=== PATIENT | male | born 1975 | race American Indian/Alaskan Native ===

== ENCOUNTER 2020-09-12 17:50 | Inpatient (IN) | payer BC, OTHER, SELFPAY ==
--- NOTE | 2020-09-12 18:18 | Event Note ---
ED Screening Note Date of service: 09/12/20 Time: 18:14 ED Screening Note: 45 y o male presents with cc of left sided cp that began earlier while he was at work, was sent to [facility] for assessmebnt EKG done, BP elevated was sent to ER, recieved aspirin at [facility] This initial assessment/diagnostic orders/clinical plan/treatment(s) is/are subject to change based on patients health status, clinical progression and re- assessment by fellow clinical providers in the ED. Further treatment and workup at subsequent clinical providers discretion. Patient/guardian urged not to elope from the ED as their condition may be serious if not clinically assessed and managed. Initial orders include: cp protocol
[2020-09-12 18:45] LABS: Hematocrit 46.4 % (35.5-45.6); Hemoglobin 15.9 gm/dl (11.8-15.2); Mean Corpuscular HGB Conc 34 % (32-34); Mean Corpuscular Volume 99 fl (84-94); Platelet Count 252 K/mm3 (140-440); Red Blood Count 4.69 M/mm3 (3.65-5.03); Red Cell Distribution Width 12.9 % (13.2-15.2)
[2020-09-12 19:05] LABS: BUN/Creatinine Ratio 13; Blood Urea Nitrogen 14 mg/dL (9-20); Calcium 9.5 mg/dL (8.4-10.2); Hemolysis Index 20
--- NOTE | 2020-09-12 19:12 | XRay Report ---
CHEST PA AND LATERAL VIEWS INDICATION: Chest Pain. COMPARISON: None. FINDINGS: Support devices: None. Heart: Within normal limits. Lungs/Pleura: There is mild elevation of the left hemidiaphragm with mild pleural thickening at the l eft costophrenic angle. No acute pulmonary findings. IMPRESSION: 1. No acute findings. Signer Name: Mp Osborne MD Signed: 09/12/2020 7:08 PM Workstation Name: [id number]
[2020-09-12 19:17] LABS: Basophils % (Manual) 0 % (0.0-1.8); Total Cells Counted 100
[2020-09-12 19:18] LABS: RBC Morphology Normal
[2020-09-13] MEDS ORDERED: SODIUM CHLORIDE 0.9% 1000 ML 1,000 ML IV ONE ×2 (00:22→04:29)
--- NOTE | 2020-09-13 02:58 | Cat Scan Report ---
CT ANGIOGRAPHY OF THE CHEST WITH INTRAVENOUS CONTRAST AND MULTIPLANAR MIP RECONSTRUCTIONS INDICATION / CLINICAL INFORMATION: Chest pain and Tachycardia. TECHNIQUE: Axial CT images were obtained after injection of 100 cc Omnipaque 350 IV contrast using CTA protocol. 3 plane MIP / 3D reconstructions were produced. All CT scans at this location are performed using CT dose reduction for ALARA by means of automated exposure control. COMPARISON: None available. FINDINGS: There is good opacification of the pulmonary arterial system bilaterally without intraluminal filling defect to suggest acute PTE. The thoracic aorta is normal in caliber without dissection. The visuali zed coronary vessels are unremarkable. There is mosaic lung attenuation. There is patchy groundglass parenchymal disease and associated sept al thickening throughout both lungs. Mild left basilar subsegmental atelectasis/scarring is noted. Th e left hemidiaphragm is slightly elevated. There are multiple areas of pleural-based nodularity in the left hemithorax predominantly anteriorly and medially. The largest nodule measures approximately 4.2 cm. There are surgical changes in the lef t upper quadrant of the abdomen with probable prior splenectomy. There are multiple splenules in the left upper quadrant. There are surgical changes involving the left colon. No other abnormality is see n in the upper abdomen No acute osseous abnormality is seen.. IMPRESSION: 1. No evidence of acute PTE. 2. Multifocal areas of groundglass parenchymal opacity and septal thickening throughout both lungs/mo saic lung attenuation. Differential diagnosis includes hypersensitivity pneumonitis and other causes of small airway disease. Atypical causes of infection, including viral pneumonia, are also possible. 3. Multifocal pleural-based nodularity in the left hemithorax is characteristic of splenosis. There i s evidence of prior splenectomy with multiple splenules in the left upper quadrant of the abdomen. Signer Name: Sammy Wyatt MD Signed: 09/13/2020 2:53 AM Workstation Name: [id number]
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
[2020-09-13] MEDS ORDERED: cefTRIAXone/NS 1 GM/50 ML 1 GM/50 ML BAG IV ONE (03:42)
[2020-09-13] MEDS ORDERED: AZITHROMYCIN 500 MG in SODIUM CHLORIDE 0.9% 250ML 250 ML IV ONE (03:42)
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
[2020-09-13 06:20] LABS: C-Reactive Protein 4.9 mg/dL (0.00-1.30)
[2020-09-13] MEDS ORDERED: ONDANSETRON 4 MG/2 ML INJ IV PRN (06:24)
[2020-09-13] MEDS ORDERED: ACETAMINOPHEN 325 MG TAB PO PRN (06:24)
[2020-09-13] MEDS: ENOXAPARIN 40 MG/0.4 ML INJ SUB-Q SCH ×2 (09:52→21:54)
[2020-09-13] MEDS: SODIUM CHLORIDE 0.9% 1000 ML 1,000 ML IV SCH ×2 (09:54→21:58)
[2020-09-13 12:21] LABS: Bilirubin,Urine NEG (Negative); Blood,Urine SM (Negative); Color,Urine Straw (Yellow); Protein,Urine <15 mg/dL mg/dL (Negative)
[2020-09-13 12:47] LABS: WBC,Urine < 1.0 /HPF (0.0-6.0)
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
[2020-09-13] MEDS ORDERED: FUROSEMIDE 40 MG/4 ML INJ IV NR (16:26)
[2020-09-13 19:27] LABS: Basophils # (Auto) 0.1 K/mm3 (0.0-0.1); Basophils % (Auto) 0.9 % (0.0-1.8); Eosinophils # (Auto) 0.2 K/mm3 (0.0-0.4); Eosinophils % (Auto) 1.7 % (0.0-4.3); Hematocrit 45.4 % (35.5-45.6); Hemoglobin 15.5 gm/dl (11.8-15.2); Lymphocytes # (Auto) 3.9 K/mm3 (1.2-5.4); Mean Corpuscular HGB Conc 34 % (32-34); Mean Corpuscular Volume 98 fl (84-94); Monocytes # (Auto) 1.3 K/mm3 (0.0-0.8); Monocytes % (Auto) 10.1 % (0.0-7.3); Platelet Count 261 K/mm3 (140-440); Red Blood Count 4.63 M/mm3 (3.65-5.03)
[2020-09-13 19:35] LABS: BUN/Creatinine Ratio 10; Blood Urea Nitrogen 11 mg/dL (9-20); Calcium 9.2 mg/dL (8.4-10.2); Hemolysis Index 8
--- NOTE | 2020-09-13 20:32 | Event Note ---
Date: 09/13/20 I have seen and examined the patient, admitted early this morning Pneumonia, PUI, COVID-19 test is negative, continue current management Follow pulmonary evaluation and recommendations Plan of care reviewed with the patient and the nurse
[2020-09-13 21:55] LABS: ABG Base Excess -0.8 mmol/L (-2.0-3.0); ABG HCO3 22.4 mmol/L (20.0-26.0); ABG Methemoglobin 0.5 % (0.0-1.5); ABG Oxygen Saturation 95.5 % (95.0-99.0); ABG PCO2 33.5 mm Hg; ABG PH 7.443 pH Units (7.350-7.450); ABG PO2 69.2 mm Hg (80.0-90.0)
[2020-09-14] MEDS ORDERED: cefTRIAXone/NS 1 GM/50 ML 1 GM/50 ML BAG IV SCH (06:00)
[2020-09-14] MEDS: cefTRIAXone/NS 2 GM/100 ML 2 GM/100 ML BAG IV SCH (08:00)
--- NOTE | 2020-09-14 08:59 | Progress Note ---
Assessment and Plan Assessment and plan: Sepsis. Patient meets criteria given the fever, leukocytosis and diagnosis of pneumonia. Follow-up blood and urine cultures. Acute hypoxemic respiratory failure. Patient with ABG reveals PO2 of 69.2. Continue O2 and BiPAP as clinically indicated. Etiology secondary to sepsis/pneumonia. Bilateral pneumonia. CT of the chest reveals no PE but groundglass opacities bilaterally. Coronavirus PCR negative. Continue ceftriaxone and azithromycin. DVT prophylaxis. Change Lovenox to prophylactic dosing. CTA negative. History Interval history: No new issues overnight Hospitalist Physical - Constitutional Vitals: Temp Pulse Resp BP Pulse Ox 99.2 F 81 20 149/79 96 09/14/20 04:27 09/14/20 04:27 09/14/20 04:27 09/14/20 04:27 09/14/20 04:27 General appearance: Present: no acute distress, obese - EENT Eyes: Present: PERRL, EOM intact ENT: hearing intact, clear oral mucosa, dentition normal - Neck Neck: Present: supple, normal ROM - Respiratory Respiratory effort: normal Respiratory: bilateral: CTA - Cardiovascular Rhythm: regular Heart Sounds: Present: S1 & S2. Absent: gallop, rub - Extremities Extremities: no ischemia, No edema, Full ROM - Abdominal General gastrointestinal: soft, non-tender, non-distended, normal bowel sounds - Integumentary Integumentary: Present: clear, warm, dry - Neurologic Neurologic: CNII-XII intact, moves all extremities HEART Score - HEART Score Troponin: Troponin T < 0.010 ng/mL (0.00-0.029) 09/12/20 21:20 Results - Labs CBC & Chem 7: 09/13/20 18:55 09/13/20 18:55 Labs: Laboratory Last Values WBC 13.3 K/mm3 (4.5-11.0) H 09/13/20 18:55 RBC 4.63 M/mm3 (3.65-5.03) 09/13/20 18:55 Hgb 15.5 gm/dl (11.8-15.2) H 09/13/20 18:55 Hct 45.4 % (35.5-45.6) 09/13/20 18:55 MCV 98 fl (84-94) H 09/13/20 18:55 MCH 33 pg (28-32) H 09/13/20 18:55 MCHC 34 % (32-34) 09/13/20 18:55 RDW 13.0 % (13.2-15.2) L 09/13/20 18:55 Plt Count 261 K/mm3 (140-440) 09/13/20 18:55 Lymph % (Auto) 29.0 % (13.4-35.0) 09/13/20 18:55 [place] % (Auto) 10.1 % (0.0-7.3) H 09/13/20 18:55 Eos % (Auto) 1.7 % (0.0-4.3) 09/13/20 18:55 Baso % (Auto) 0.9 % (0.0-1.8) 09/13/20 18:55 Lymph # (Auto) 3.9 K/mm3 (1.2-5.4) 09/13/20 18:55 [place] # (Auto) 1.3 K/mm3 (0.0-0.8) H 09/13/20 18:55 Eos # (Auto) 0.2 K/mm3 (0.0-0.4) 09/13/20 18:55 Baso # (Auto) 0.1 K/mm3 (0.0-0.1) 09/13/20 18:55 Add Manual Diff Complete 09/12/20 18:17 Total Counted 100 09/12/20 18:17 Seg Neutrophils % 58.3 % (40.0-70.0) 09/13/20 18:55 Seg Neuts % (Manual) 87.0 % (40.0-70.0) H 09/12/20 18:17 Band Neutrophils % 0 % 09/12/20 18:17 Lymphocytes % (Manual) 6.0 % (13.4-35.0) L 09/12/20 18:17 Reactive Lymphs % (Man) 0 % 09/12/20 18:17 Monocytes % (Manual) 6.0 % (0.0-7.3) 09/12/20 18:17 Eosinophils % (Manual) 1.0 % (0.0-4.3) 09/12/20 18:17 Basophils % (Manual) 0 % (0.0-1.8) 09/12/20 18:17 Metamyelocytes % 0 % 09/12/20 18:17 Myelocytes % 0 % 09/12/20 18:17 Promyelocytes % 0 % 09/12/20 18:17 Blast Cells % 0 % 09/12/20 18:17 Nucleated RBC % Not Reportable 09/12/20 18:17 Seg Neutrophils # 7.8 K/mm3 (1.8-7.7) H 09/13/20 18:55 Seg Neutrophils # Man 20.4 K/mm3 (1.8-7.7) H 09/12/20 18:17 Band Neutrophils # 0.0 K/mm3 09/12/20 18:17 Lymphocytes # (Manual) 1.4 K/mm3 (1.2-5.4) 09/12/20 18:17 Abs React Lymphs (Man) 0.0 K/mm3 09/12/20 18:17 Monocytes # (Manual) 1.4 K/mm3 (0.0-0.8) H 09/12/20 18:17 Eosinophils # (Manual) 0.2 K/mm3 (0.0-0.4) 09/12/20 18:17 Basophils # (Manual) 0.0 K/mm3 (0.0-0.1) 09/12/20 18:17 Metamyelocytes # 0.0 K/mm3 09/12/20 18:17 Myelocytes # 0.0 K/mm3 09/12/20 18:17 Promyelocytes # 0.0 K/mm3 09/12/20 18:17 Blast Cells # 0.0 K/mm3 09/12/20 18:17 WBC Morphology Not Reportable 09/12/20 18:17 Hypersegmented Neuts Not Reportable 09/12/20 18:17 Hyposegmented Neuts Not Reportable 09/12/20 18:17 Hypogranular Neuts Not Reportable 09/12/20 18:17 Smudge Cells Not Reportable 09/12/20 18:17 Toxic Granulation Not Reportable 09/12/20 18:17 Toxic Vacuolation Not Reportable 09/12/20 18:17 Dohle Bodies Not Reportable 09/12/20 18:17 Pelger-Huet Anomaly Not Reportable 09/12/20 18:17 Steven Rods Not Reportable 09/12/20 18:17 Platelet Estimate Appears normal 09/12/20 18:17 Clumped Platelets Not Reportable 09/12/20 18:17 Plt Clumps, EDTA Not Reportable 09/12/20 18:17 Large Platelets Not Reportable 09/12/20 18:17 Giant Platelets Not Reportable 09/12/20 18:17 Platelet Satelliting Not Reportable 09/12/20 18:17 Plt Morphology Comment Not Reportable 09/12/20 18:17 RBC Morphology Normal 09/12/20 18:17 Dimorphic RBCs Not Reportable 09/12/20 18:17 Polychromasia Not Reportable 09/12/20 18:17 Hypochromasia Not Reportable 09/12/20 18:17 Poikilocytosis Not Reportable 09/12/20 18:17 Anisocytosis Not Reportable 09/12/20 18:17 Microcytosis Not Reportable 09/12/20 18:17 Macrocytosis Not Reportable 09/12/20 18:17 Spherocytes Not Reportable 09/12/20 18:17 Pappenheimer Bodies Not Reportable 09/12/20 18:17 Sickle Cells Not Reportable 09/12/20 18:17 Target Cells Not Reportable 09/12/20 18:17 Tear Drop Cells Not Reportable 09/12/20 18:17 Ovalocytes Not Reportable 09/12/20 18:17 Helmet Cells Not Reportable 09/12/20 18:17 [place] Bodies Not Reportable 09/12/20 18:17 [place] Rings Not Reportable 09/12/20 18:17 [place] Cells Not Reportable 09/12/20 18:17 Bite Cells Not Reportable 09/12/20 18:17 Crenated Cell Not Reportable 09/12/20 18:17 Elliptocytes Not Reportable 09/12/20 18:17 Acanthocytes (Spur) Not Reportable 09/12/20 18:17 Rouleaux Not Reportable 09/12/20 18:17 Hemoglobin C Crystals Not Reportable 09/12/20 18:17 Schistocytes Not Reportable 09/12/20 18:17 Malaria parasites Not Reportable 09/12/20 18:17 Ham Bodies Not Reportable 09/12/20 18:17 Hem Pathologist Commnt No 09/12/20 18:17 D-Dimer 33.2 ng/mlDDU (0-234) 09/13/20 04:45 ABG pH 7.443 pH Units (7.350-7.450) 09/13/20 21:50 ABG pCO2 33.5 mm Hg 09/13/20 21:50 ABG pO2 69.2 mm Hg (80.0-90.0) L 09/13/20 21:50 ABG HCO3 22.4 mmol/L (20.0-26.0) 09/13/20 21:50 ABG O2 Saturation 95.5 % (95.0-99.0) 09/13/20 21:50 ABG O2 Content 20.6 (0.0-44) 09/13/20 21:50 ABG Base Excess -0.8 mmol/L (-2.0-3.0) 09/13/20 21:50 ABG Hemoglobin 15.8 gm/dl (14.0-18.0) 09/13/20 21:50 ABG Carboxyhemoglobin 2.1 % (0.0-5.0) 09/13/20 21:50 ABG Methemoglobin 0.5 % (0.0-1.5) 09/13/20 21:50 Oxyhemoglobin 93.0 % (95.0-99.0) L 09/13/20 21:50 FiO2 21 % 09/13/20 21:50 Sodium 141 mmol/L (137-145) 09/13/20 18:55 Potassium 3.7 mmol/L (3.6-5.0) 09/13/20 18:55 Chloride 105.7 mmol/L (98-107) 09/13/20 18:55 Carbon Dioxide 25 mmol/L (22-30) 09/13/20 18:55 Anion Gap 14 mmol/L 09/13/20 18:55 BUN 11 mg/dL (9-20) 09/13/20 18:55 Creatinine 1.1 mg/dL (0.8-1.3) 09/13/20 18:55 Estimated GFR > 60 ml/min 09/13/20 18:55 BUN/Creatinine Ratio 10 % 09/13/20 18:55 Glucose 113 mg/dL (75-100) H 09/13/20 18:55 Calcium 9.2 mg/dL (8.4-10.2) 09/13/20 18:55 Lactate Dehydrogenase 208 units/L (91-180) H 09/13/20 04:45 Troponin T < 0.010 ng/mL (0.00-0.029) 09/12/20 21:20 C-Reactive Protein 4.90 mg/dL (0.00-1.30) H 09/13/20 04:45 Urine Color Straw (Yellow) 09/13/20 12:04 Urine Turbidity Clear (Clear) 09/13/20 12:04 Urine pH 7.0 (5.0-7.0) 09/13/20 12:04 Ur Specific [place] 1.012 (1.003-1.030) 09/13/20 12:04 Urine Protein <15 mg/dl mg/dL (Negative) 09/13/20 12:04 Urine Glucose (UA) Neg mg/dL (Negative) 09/13/20 12:04 Urine Ketones Neg mg/dL (Negative) 09/13/20 12:04 Urine Blood Sm (Negative) 09/13/20 12:04 Urine Nitrite Neg (Negative) 09/13/20 12:04 Urine Bilirubin Neg (Negative) 09/13/20 12:04 Urine Urobilinogen 4.0 mg/dL (<2.0) 09/13/20 12:04 Ur Leukocyte Esterase Neg (Negative) 09/13/20 12:04 Urine WBC (Auto) < 1.0 /HPF (0.0-6.0) 09/13/20 12:04 Urine RBC (Auto) 1.0 /HPF (0.0-6.0) 09/13/20 12:04 Coronavirus (PCR) Negative (Negative) 09/13/20 10:49 Microbiology: Microbiology 09/13/20 04:55 Peripheral/Venous Blood Culture - Preliminary NO GROWTH AFTER 24 HOURS 09/13/20 04:45 Peripheral/Venous Blood Culture - Preliminary NO GROWTH AFTER 24 HOURS Rosa/IV: Voiding Method Urinal IV Catheter Type [Left INT / Saline Lock Antecubital] Active Medications - Current Medications Current Medications: Generic Name Dose Route Start Last Admin Trade Name Freq PRN Reason Stop Dose Admin Acetaminophen 650 mg 09/13/20 06:24 Tylenol PO Q4H PRN Pain MILD(1-3)/Fever >100.5/JENNINGS Azithromycin 500 mg 09/14/20 10:00 Zithromax PO 09/17/20 10:01 QDAY ROSANNA Enoxaparin Sodium 40 mg 09/13/20 10:00 09/13/20 21:54 Enoxaparin SUB-Q 40 mg BID ROSANNA Administration Protocol Sodium Chloride 1,000 mls @ 75 mls/hr 09/13/20 04:45 09/13/20 21:58 Nacl 0.9% 1000 Ml IV 75 mls/hr DIRECT ROSANNA Administration Ceftriaxone Sodium 2 gm in 100 mls @ 200 mls/hr 09/14/20 08:00 Rocephin/Ns 2 Gm/100 Ml IV 09/17/20 08:29 Q24HR@0800 ROSANNA Ondansetron HCl 4 mg 09/13/20 06:24 Zofran IV Q8H PRN Nausea And Vomiting Sodium Chloride 10 ml 09/13/20 10:00 09/13/20 21:54 Sodium Chloride Flush Syringe 10 Ml IV 10 ml BID ROSANNA Administration Sodium Chloride 10 ml 09/13/20 06:24 Sodium Chloride Flush Syringe 10 Ml IV PRN PRN LINE FLUSH
[2020-09-14] MEDS ORDERED: AZITHROMYCIN 500 MG in SODIUM CHLORIDE 0.9% 250ML 250 ML IV SCH (10:00)
[2020-09-14] MEDS: AZITHROMYCIN 250 MG TAB PO SCH (10:08)
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
[2020-09-14] MEDS ORDERED: ENOXAPARIN 40 MG/0.4 ML INJ SUB-Q SCH (22:00)
[2020-09-15] MEDS: SODIUM CHLORIDE 0.9% 1000 ML 1,000 ML IV SCH (00:23)
[2020-09-15 05:19] VITALS: BP 149/84
[2020-09-15 07:53] LABS: Basophils # (Auto) 0.1 K/mm3 (0.0-0.1); Basophils % (Auto) 0.8 % (0.0-1.8); Eosinophils # (Auto) 0.5 K/mm3 (0.0-0.4); Eosinophils % (Auto) 3.4 % (0.0-4.3); Hematocrit 45.1 % (35.5-45.6); Hemoglobin 15.7 gm/dl (11.8-15.2); Mean Corpuscular HGB Conc 35 % (32-34); Mean Corpuscular Volume 98 fl (84-94); Monocytes # (Auto) 1.4 K/mm3 (0.0-0.8); Monocytes % (Auto) 9.4 % (0.0-7.3); Platelet Count 256 K/mm3 (140-440); Red Cell Distribution Width 12.5 % (13.2-15.2)
[2020-09-15 08:04] LABS: BUN/Creatinine Ratio 10; Blood Urea Nitrogen 11 mg/dL (9-20); Calcium 9.3 mg/dL (8.4-10.2); Hemolysis Index 6
[2020-09-15] MEDS: cefTRIAXone/NS 2 GM/100 ML 2 GM/100 ML BAG IV SCH (08:11)
--- NOTE | 2020-09-15 09:15 | Discharge Summary ---
Providers - Providers Date of Admission: 09/13/20 06:25 Date of discharge: 09/15/20 Attending physician: FREDERICK COREY 09/13/20 03:47 Consult to Physician [CONS] Routine Comment: Consulting Provider: JESSICA HUNT Physician Instructions: Reason For Exam: P[place]um[place] Primary care physician: [employer] Hospitalization Reason for admission: CAP Condition: Stable Hospital course: 45-year-old male presented through the emergency department with chief complaint of chest pain and elevated blood pressure. The patient was admitted with diagnosis of sepsis, bilateral pneumonia and accelerated hypertension. Patient had a CT of the chest that was negative for PE but revealed bilateral groundglass opacities and pneumonitis. Patient had Covid testing that was done and was found to be negative. On admission, patient was noted to have leukocytosis of 23.4 and a fever of 100.6. The patient received IV antibiotics of ceftriaxone and azithromycin and was seen by pulmonary consultation. Pulmonary recommended that the patient could be discharged with 5 days of Levaquin monotherapy and have outpatient pulmonary follow-up in the clinic. Patient also underwent echocardiogram which is pending results and can be followed up as an outpatient as well. Dedicated discharge time 32 minutes Disposition: DC-01 TO HOME OR SELFCARE Time spent for discharge: 32 - Discharge Diagnoses (1) Sepsis Status: Acute (2) Hypertension Status: Acute (3) Leucocytosis Status: Acute (4) Obesity due to excess calories Status: Acute (5) Pneumonia Status: Acute Core Measure Documentation - Palliative Care Palliative Care/ Comfort Measures: Not Applicable - Core Measures Any of the following diagnoses?: none Exam - Constitutional Vitals: Temp Pulse Resp BP Pulse Ox 98.9 F 81 20 149/84 93 09/15/20 04:29 09/15/20 04:29 09/15/20 04:29 09/15/20 04:29 09/15/20 04:29 General appearance: Present: no acute distress, well-nourished - EENT Eyes: Present: PERRL ENT: hearing intact, clear oral mucosa - Neck Neck: Present: supple, normal ROM - Respiratory Respiratory effort: normal Respiratory: bilateral: CTA - Cardiovascular Heart Sounds: Present: S1 & S2. Absent: rub, click - Extremities Extremities: pulses symmetrical, No edema Peripheral Pulses: within normal limits - Abdominal General gastrointestinal: Present: soft, non-tender, non-distended, normal bowel sounds Male genitourinary: Present: normal - Integumentary Integumentary: Present: clear, warm, dry - Musculoskeletal Musculoskeletal: gait normal, strength equal bilaterally - Psychiatric Psychiatric: appropriate mood/affect, intact judgment & insight - Neurologic Neurologic: CNII-XII intact, moves all extremities Plan Activity: advance as tolerated Weight Bearing Status: Weight Bear as Tolerated Diet: low fat, low cholesterol, low salt Follow up with: PRIMARY CARE, [Primary Care Provider] - 3-5 Days OSWALDO CARLOS MD [Staff Physician] - 7 Days Prescriptions: levoFLOXacin [Levaquin] 750 mg PO QDAY #5 tablet
[2020-09-15] MEDS: AZITHROMYCIN 250 MG TAB PO SCH (10:07)
[2020-09-18 21:35] LABS: ANA Screen, IFA Negative (Negative)
== END 2020-09-15 17:08 | disposition home or self-care (01) | DRG 871 ==
LOC: ED 17:50 → 3A 09-13 06:25
PROVIDERS: ADMIT Internal Medicine Geriatric Medicine; ATTEND Hospitalist
PROC: 4A033R1 Measurement of Arterial Saturation, Peripheral, Percutaneous Approach (ICD-10-PCS; principal; 2020-09-13)
DX: A41.9 Sepsis, unspecified organism (principal); J18.9 Pneumonia, unspecified organism; J96.01 Acute respiratory failure with hypoxia; Z68.41 Body mass index [BMI] 40.0-44.9, adult; Z20.828 Contact with and (suspected) exposure to other viral communicable diseases; I10 Essential (primary) hypertension; F17.200 Nicotine dependence, unspecified, uncomplicated; E66.01 Morbid (severe) obesity due to excess calories
CPT/HCPCS: 36415; 36600; 71046; 71275; 80048; 81001; 82803; 83615; 84484; 85007; 85025; 85379; 86038; 86140; 87040; 93005; 93306; 96365; G0378; J0456; J0696; J1650; J7030; J7050; Q9967; U0003